=== PATIENT | female | born 2005 | race Caucasian/White ===

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

== ENCOUNTER → 2023-06-27 | Outpatient (CLI) | payer MEDICAID, SELFPAY ==
--- NOTE | 2023-06-27 12:35 | RAD_ITS ---
STUDY: X-RAY - RIGHT ANKLE REASON FOR EXAM: Female, 17 years old. Right lateral ankle pain TECHNIQUE: 3 view(s) of the ankle. COMPARISON: None. FINDINGS: Normal visualized distal tibia and fibula. Normal medial and lateral malleoli. Normal tibiotalar articulation and ankle mortise. Normal visualized talus and calcaneus. The visualized subtalar, talonavicular, calcaneocuboid and tarsal articulations are normal. Lateral soft tissue swelling. RAD/Ankle min 3 Views IMPRESSION: Lateral soft tissue swelling. Electronically Signed: Mason Hough MD at 13:25 EDT ,
== END | disposition home or self-care (01) ==
PROVIDERS: PCP Pediatrics; Referring Provider Physician Assistant; Visit Provider Physician Assistant
DX: M25.571 Pain in right ankle and joints of right foot (principal)
CPT/HCPCS: 73610

== ENCOUNTER 2023-10-21 14:36 | Emergency (ER) | payer SELFPAY ==
[2023-10-21 14:38] VITALS: BP 140/86; PULSE 79; RESP 18; TEMP 36.4; O2SAT 91; BMI 41.5
--- NOTE | 2023-10-21 15:22 | EKG12_ITS ---
Test Reason : COUGH Blood Pressure : / mmHG Vent. Rate : 066 BPM Atrial Rate : 066 BPM P-R Int : 134 ms QRS Dur : 072 ms QT Int : 410 ms P-R-T Axes : 098 045 029 degrees QTc Int : 429 ms Normal sinus rhythm with sinus arrhythmia Normal ECG Confirmed by TK SALAZAR, BLANCA ([id number]), commissioning editor JONATHAN ART ([id number]) on 10/23/2023 10:01:07 AM Referred By: Confirmed By:BLANCA FREY MD
--- NOTE | 2023-10-21 15:24 | EX.ED.DYSGE1 ---
HPI History of Present Illness Chief Complaint: Cough Informant: patient and family Onset/Context/Timing Onset: Weeks Narrative Narrative: Patient presents with 3-week history of cough. She reports occasional sputum production and does feel as if she is wheezing. No fever or chills. For the past 6 days she has had pain just beneath the left breast and around the left lower ribs. She describes it as sharp in nature. She states that a couple weeks ago she was given antibiotics, prednisone, and an inhaler. She did not know any improvement with this. Arrival to the documentation she was given Zithromax and 10 mg of prednisone for 3 days. [facility] Medical History Right ankle sprain Home Medications azithromycin 250 mg tablet See Rx Instructions PO .COMPLEX #6 tabs 10/08/23 [Rx Last Taken Unknown] levofloxacin 750 mg tablet 750 mg PO DAILY 4 days #4 tabs 10/21/23 [Rx Last Taken Unknown] ondansetron 4 mg disintegrating tablet 4 mg PO Q8H PRN PRN Nausea #10 tabs 10/21/23 [Rx Last Taken Unknown] prednisone 20 mg tablet 40 mg (2 x 20 mg) PO DAILY #8 tabs 10/21/23 [Rx Last Taken Unknown] Allergy/AdvReac Type Severity Reaction Status Date / Time amoxicillin [Amoxicillin] Allergy Unknown Verified 10/21/23 14:38 Penicillins Allergy Unknown Verified 10/21/23 14:38 Social History Smoking Status: Never smoker ROS ROS ED Constitutional Constitutional ED: Denies chills or fever(s) Eyes Eyes: Denies discharge from eye(s) ENT ENT ED: Denies discharge from eye(s), rhinorrhea or sore throat Cardiovascular Cardiovascular: Reports chest pain; Denies palpitations Respiratory/Chest Respiratory/Chest: Reports cough and dyspnea Gastrointestinal Gastrointestinal: Denies abdominal pain, nausea or vomiting Genitourinary Genitourinary ED: Denies dysuria Musculoskeletal Musculoskeletal: Reports back pain; Denies extremity pain Integumentary Denies Abrasions or rash Neurologic Neurologic: Denies headache(s) or weakness Psychiatric Psychiatric: Denies anxiety or depression Allergic/Immunologic Allergic/Immunologic ED: Denies lip swelling or urticaria EXAM Physical Exam Const Vital Signs: 10/21/23 14:38 10/21/23 15:06 10/21/23 15:38 Temperature 97.6 F L Temperature Source Temporal Pulse Rate 79 78 Respiratory Rate 18 18 Respiratory Effort Short of Breath Respiratory Depth Normal Respiratory Pattern Normal Normal Blood Pressure 140/86 H Blood Pressure Mean 104 Pulse Ox 91 Oxygen Delivery Method Room Air Room Air Positive well nourished and well developed General Appearance ED: well developed HEENT Reports normocephalic and head/scalp atraumatic Eyes PERRL and EOMs intact bilaterally Neck supple Chest Wall inspection of chest normal and palpation of chest normal Resp normal respiratory effort Resp Narrative: Expiratory wheezes bilaterally. Cardio regular rate and regular rhythm GI normal to inspection, nondistended, normoactive bowel sounds Palpation: soft Extremity normal to inspection Neuro oriented x3 and no sensory deficits noted Sensorium / Orientation: alert Motor Exam: strength 5/5 throughout Psych mental status grossly normal Skin no rashes or lesions noted MDM MDM MDM Narrative Medical decision making narrative: Patient placed on manager cardiac cath. Aerosols initiated and patient given IV Solu-Medrol. Labwork obtained to evaluate for leukocytosis, anemia, and electrolyte derangement. Chest x-ray obtained to evaluate for acute lung pathology, cardiac size, or mediastinal abnormality. History & Record Review Discussion w/independent historian: Patient and Family Lab Data Attestation: I reviewed the patient's lab results. Labs: Laboratory Results - last 24 hr 10/21/23 15:35 WBC 7.0 RBC 4.47 Hgb 13.3 Hct 39.6 MCV 88.6 MCH 29.8 MCHC 33.6 RDW Std Deviation 42.5 RDW Coeff of Tra 15.0 H Plt Count 201 MPV 12.3 H Immature Gran % (Auto) 0.100 Neut % (Auto) 55.7 Lymph % (Auto) 27.9 [place] % (Auto) 6.9 Eos % (Auto) 8.7 H Baso % (Auto) 0.7 Absolute Neuts (auto) 3.9 Absolute Lymphs (auto) 1.95 Nucleated RBC % 0 D-Dimer Quant (PE/DVT) < 0.27 L Sodium 140 Potassium 3.9 Chloride 109 H Carbon Dioxide 28.0 Anion Gap 3 L BUN 8 Creatinine 0.87 Estim Creat Clear Calc 86.04 Est GFR (MDRD) Af Amer 107 Est GFR (MDRD) Non-Af 89 BUN/Creatinine Ratio 9.2 L Glucose 90 Calcium 9.1 Troponin I High Sens 4 Serum , Qual NEGATIVE Radiography Chest X-Ray - ED: 1 View, Read by ED Physician and Right Infiltrate Diagnostic Testing: Clinical Impression(s) from Imaging Studies Chest X-Ray 10/21/23 15:53 IMPRESSION: Subtle right middle and/or lower lobe pulmonary opacity may be atelectasis or pneumonia. Electronically Signed: Jt Hayes at 16:15 EST , EKG Initial EKG: Attestation: I personally reviewed and interpreted this EKG as follows: Interpretation: Sinus Rhythm (Sinus at 66 with no acute ischemia.) Treatment and Re-Evaluation :: CBC was normal white count 7.0 with normal differential. Hemoglobin is 13.3. Chemistry studies unremarkable. Troponin is normal. D-dimer is less than 0.27. Portable chest x-ray per my interpretation reveals what appears to be an early infiltrate on the right lower. Radiology interpretation reviewed and agrees this is either infiltrate or atelectasis. EKG reveals no evidence of ischemia. On repeat evaluation wheezing is improved. Patient has albuterol at home to use. I will write her appropriate dose of prednisone, Levaquin, and some nausea medicine to have on hand if needed. Return instructions provided. Discharge Plan Triage Chief Complaint: Cough Other Complaint: Back ED Provider: Grace Kaur Dx/Rx/DC Orders Clinical Impression: Pneumonia Instructions: ED Pneumonia (Adult) Prescriptions: New prednisone 20 mg tablet 40 mg PO DAILY Qty: 8 0RF levofloxacin 750 mg tablet 750 mg PO DAILY 4 Days Qty: 4 0RF ondansetron 4 mg tablet,disintegrating 4 mg PO Q8H PRN PRN (Reason: Nausea) Qty: 10 0RF No Action azithromycin 250 mg tablet See Rx Instructions PO .COMPLEX Qty: 6 0RF Rx Instructions: For 250 mg dose pack: take 500 mg today (day 1), then 250 mg for 4 days (days 2-5) PO Primary Care Provider: Omayra Friedman Referrals: Omayra Friedman MD [Primary Care Provider] - 1-2 Weeks Alina Hansen MD [Non-Staff] - Disposition Disposition: Home, Self Care
[2023-10-21] MEDS: MethylPREDNISolone 125 MG/2 ML Vial IV (15:36)
[2023-10-21] MEDS: Ipratropium/Albuterol Sulfate 3 ML AMPUL.NEB INHALATION (15:36)
[2023-10-21 15:38] VITALS: PULSE 78; RESP 18
[2023-10-21] MEDS: Albuterol 2.5 MG/3 ML VIAL.NEB. INHALATION (15:40)
[2023-10-21 15:49] LABS: Absolute Lymphocyte Count 1.95 X10^3/uL (0.83-4.51); Absolute Neutrophil Count 3.9 X10^3/uL (2.0-7.7); Basophil# 0.05 X10^3/uL; Basophil% 0.7 % (0-1); Eosinophil# 0.61 X10^3/uL; Eosinophils% 8.7 % (0-5); Hematocrit 39.6 % (37-47); Hemoglobin 13.3 g/dL (12.0-15.0); Lymphocyte # 1.95 X10^3/ul (0.83-4.51); Lymphocyte % 27.9 % (19-41); Mean Corp Hgb Conc 33.6 g/dL (32-36); Mean Corpuscular Hgb 29.8 pg (27.0-32.0); Mean Corpuscular Volume 88.6 fL (81-99); Mean Platelet Vol. 12.3 fl (6.2-12.0); Monocyte# 0.48 X10^3/uL; Monocyte% 6.9 % (0-10); NRBC Flagged by Analyzer 0 % (0-5); Neutrophil % 55.7 % (47-70); Platelet Count 201 K/mm3 (150-450); RBC Distribution Width SD 42.5 fl (35.1-43.9); Red Blood Count 4.47 M/mm3 (4.2-5.4)
--- NOTE | 2023-10-21 15:53 | RAD_ITS ---
EXAM: XR CHEST, 1 VIEW CLINICAL INDICATION: cough TECHNIQUE: Frontal view of the chest. COMPARISON: No relevant prior studies available. FINDINGS: LUNGS AND PLEURAL SPACES: Subtle right middle and/or lower lobe pulmonary opacity may be atelectasis or pneumonia. No pneumothorax. No effusion. HEART: No significant abnormality. Cardiac silhouette not enlarged. MEDIASTINUM: Central airways and mediastinal contour are unremarkable. BONES/JOINTS: No significant abnormality. No acute fracture. SOFT TISSUES: No significant abnormality. RAD/Chest 1 View (Portable) IMPRESSION: Subtle right middle and/or lower lobe pulmonary opacity may be atelectasis or pneumonia. Electronically Signed: Jt Hayes DO at 16:15 EST ,
[2023-10-21 16:00] LABS: Internal QC Validated? YES +Cl - CLEAR BKGD; Pregnancy, Serum, hCG Quali. NEGATIVE Negative
[2023-10-21 16:05] LABS: Anion Gap 3 (5-15); BUN 8 mg/dL (7-18); BUN/Creat Ratio 9.2 RATIO (10-20); Calcium,Total 9.1 mg/dL (8.5-10.1); Chloride 109 mmol/L (98-107); Creatinine, Serum 0.87 mg/dL (0.55-1.02); EST Glomerular Filtration Rate 89 mL/min (>60); Est Glom Filt Rate - Afr Amer 107 mL/min (>60); Estimated Creatinine Clearance 86.04 ml/min; Glucose 90 mg/dL (74-106); Potassium 3.9 mmol/L (3.5-5.1); Sodium Level 140 mmol/L (136-145); Troponin-I HS 4 pg/mL (3.0-54.0)
[2023-10-21 16:06] LABS: D-Dimer Quantitative (DVT/PE) < 0.27 FEU/ug/m (0.27-0.49)
[2023-10-21] MEDS: levoFLOXacin 750 MG Tablet PO (16:38)
== END 2023-10-21 16:44 | disposition home or self-care (01) ==
PROVIDERS: Emergency Provider Emergency Medicine; PCP Family Medicine; Visit Provider Emergency Medicine
DX: J18.9 Pneumonia, unspecified organism (principal)
CPT/HCPCS: 71045; 80048; 84484; 84703; 85025; 85379; 93005; 94640; 96374; 99285; A4216